=== PATIENT | female | born 1985 | race Caucasian/White ===

== ENCOUNTER 2022-01-19 20:37 | Observation (INO) | payer BC ==
[~2022-01-19] VITALS: Ht 160 cm; Wt 86.2 kg
[~2022-01-19 20:37] MED LIST: AZIT500T2 PO; CALC500T13 PO; DOCU100C54 PO; FAMO-136 PO; GUAI100G PO; IBUP-2077 PO; PREN1TAB80 PO
[2022-01-19] MEDS ORDERED: MORPHINE 4 MG SYG IVP ONE (21:15)
[2022-01-19] MEDS ORDERED: ONDANSETRON 4MG INJ IVP ONE (21:15)
[2022-01-19 22:30] LABS: BASOPHILS % (AUTO) 0.3 % (0.0-5.0); EOSINOPHILS % (AUTO) 0.8 % (0.0-8.0); HEMATOCRIT 38.5 % (36-48); LYMPHOCYTES % (AUTO) 10.6 % (21.0-51.0); MEAN CORPUSCULAR HEMOGLOBIN 29.8 pg (27.0-33.0); MEAN CORPUSCULAR VOLUME 90.4 fL (79-99); MONOCYTES % (AUTO) 4.9 % (3.0-13.0); PLATELET COUNT (AUTO) 181 K/uL (130-400); RED BLOOD CELL COUNT(AUTO) 4.26 MIL/uL (4.00-5.50); RED CELL DISTRIBUTION WIDTH 13.8 % (11.0-15.5); WHITE BLOOD COUNT (AUTO) 13.8 K/uL (4.8-10.8)
[2022-01-19 22:34] LABS: CREATININE 0.9 mg/dL (0.5-1.5); POTASSIUM 3.9 mmol/L (3.5-5.1)
[2022-01-19 22:39] LABS: ALBUMIN 3.5 g/dL (3.5-5.0); TOTAL PROTEIN, SERUM 6.5 g/dL (6.0-8.3)
[2022-01-19] MEDS ORDERED: IOHEXOL 350 MG/ML 100ML INFUS..BTL IV ONE (22:48)
[2022-01-20] MEDS ORDERED: MORPHINE 4 MG SYG IVP ONE
[2022-01-20 00:28] LABS: APPEARANCE,URINE CLEAR (CLEAR); BILIRUBIN,URINE NEGATIVE (NEGATIVE); COLOR,URINE YELLOW (YELLOW); GLUCOSE, URINE (UA) NEGATIVE (NEGATIVE); KETONES,URINE NEGATIVE (NEGATIVE); LEUKOCYTE ESTERASE ,URINE NEGATIVE (NEGATIVE); NITRATE,URINE NEGATIVE (NEGATIVE); OCCULT BLOOD,URINE NEGATIVE (NEGATIVE); PROTEIN,URINE NEGATIVE (NEGATIVE); UROBILINOGEN,URINE 0.2 mg/dL (0.2-1.0)
[2022-01-20] MEDS ORDERED: ONDANSETRON 4MG INJ IVP PRN (03:30)
[2022-01-20] MEDS ORDERED: MONT-39 PO (05:33)
[2022-01-20] MEDS ORDERED: CETI10CA5 PO (05:33)
[2022-01-20] MEDS ORDERED: TOPI25CA12 PO (05:33)
[2022-01-20] MEDS ORDERED: CITA-108 PO (05:33)
[2022-01-20] MEDS ORDERED: ASPI1TAB7 PO (05:35)
[2022-01-20] MEDS ORDERED: POLY17PO4 PO (05:49)
[2022-01-20] MEDS: MORPHINE 4 MG SYG IVP PRN ×3 (06:10→19:25)
[2022-01-20 08:00] VITALS: BP 104/47
[2022-01-20 12:00] VITALS: BP 106/53
[2022-01-20] MEDS ORDERED: CAFFEINE PO PRN (14:00)
[2022-01-20] MEDS ORDERED: ACETAMINOPHEN PO PRN (14:00)
[2022-01-20] MEDS ORDERED: ASPIRIN PO PRN (14:00)
[2022-01-20] MEDS ORDERED: [UNRECOGNIZED DRUG - OTHER] PO PRN (14:00)
[2022-01-20] MEDS ORDERED: EXCEDRIN MIGRAINE PO PRN (15:00)
[2022-01-20 16:00] VITALS: BP 117/62
[2022-01-20 19:00] VITALS: BP 120/64
[2022-01-21] VITALS (7 sets, daily range): BP systolic 103–123; BP diastolic 54–78
[2022-01-21] MEDS ORDERED: KETOROLAC 30MG VIAL (30MG/ML) ONE (00:04)
[2022-01-21] MEDS: CETIRIZINE HCL 5 MG TABLET PO SCH (07:55)
[2022-01-21] MEDS: CITALOPRAM 20 MG TABLET PO SCH (07:55)
[2022-01-21] MEDS: MONTELUKAST SODIUM 10 MG TAB PO SCH (07:55)
[2022-01-21] MEDS: KETOROLAC 30MG VIAL (30MG/ML) IVP PRN ×3 (07:56→23:08)
[2022-01-21] MEDS: TOPIRAMATE 25 MG PO SCH (08:00)
[2022-01-21] MEDS ORDERED: LACTULOSE 20 GM/30 ML UDCUP ONE (23:16)
[2022-01-21] MEDS ORDERED: LACTULOSE 20 GM/30 ML UDCUP PO PRN (23:30)
[2022-01-22 04:00] VITALS: BP 102/54
[2022-01-22] MEDS: KETOROLAC 30MG VIAL (30MG/ML) IVP PRN ×2 (06:05→12:25)
[2022-01-22 07:13] VITALS: BP 108/60
[2022-01-22] MEDS: CITALOPRAM 20 MG TABLET PO SCH (08:05)
[2022-01-22] MEDS: MONTELUKAST SODIUM 10 MG TAB PO SCH (08:06)
[2022-01-22] MEDS: TOPIRAMATE 25 MG PO SCH (08:06)
[2022-01-22] MEDS: CETIRIZINE HCL 5 MG TABLET PO SCH (08:06)
[2022-01-22 11:50] VITALS: BP 109/65
== END 2022-01-22 15:00 | disposition home or self-care (01) ==
LOC: EDH 20:37 → EDHIP 01-20 02:00 → 3AH 01-20 04:57
PROVIDERS: ADMIT Surgery; ATTEND Surgery
DX: S32.591A Other specified fracture of right pubis, initial encounter for closed fracture (principal); F41.9 Anxiety disorder, unspecified; G43.909 Migraine, unspecified, not intractable, without status migrainosus; V80.010A Animal-rider injured by fall from or being thrown from horse in noncollision accident, initial encounter; Y93.52 Activity, horseback riding; Y92.89 Other specified places as the place of occurrence of the external cause; Z91.81 History of falling; Z79.899 Other long term (current) drug therapy
CPT/HCPCS: 96374; 96375 ×2; 99285; 80053; 84703; 85025; 36415; 74177; 96376 ×3; 81003; 97161; 97039; 97116; J2405; J2270 ×5; Q9967; G0378 ×59; J1885 ×6

== ENCOUNTER → 2023-11-02 | Outpatient (CLI) | payer BC ==
[~2023-11-02] MED LIST changes: +ASPI1TAB7 PO; -AZIT500T2 PO; -CALC500T13 PO; +CETI10CA5 PO; +CITA-108 PO; -DOCU100C54 PO; -FAMO-136 PO; -GUAI100G PO; +MONT-39 PO; +POLY17PO4 PO; -PREN1TAB80 PO; +TOPI25CA12 PO
== END | disposition home or self-care (01) ==
LOC: RAH 15:20
PROVIDERS: ATTEND Family Medicine
DX: Z12.31 Encounter for screening mammogram for malignant neoplasm of breast (principal); N63.10 Unspecified lump in the right breast, unspecified quadrant; R92.333 Mammographic heterogeneous density, bilateral breasts
CPT/HCPCS: 77067

== ENCOUNTER → 2024-01-05 | Outpatient (CLI) | payer BC | END | disposition home or self-care (01) | LOC: RAH 09:00 | PROVIDERS: ATTEND Family Medicine | DX: N63.15 Unspecified lump in the right breast, overlapping quadrants (principal); R92.8 Other abnormal and inconclusive findings on diagnostic imaging of breast | CPT/HCPCS: 76641; 77065 ==